=== PATIENT | female | born 2000 | race Caucasian/White ===

== ENCOUNTER → 2020-03-02 15:57 | Outpatient (CLI) | payer BC, SELFPAY | PROVIDERS: Visit Provider Nurse Practitioner Obstetrics & Gynecology | DX: Z34.90 Encounter for supervision of normal pregnancy, unspecified, unspecified trimester (principal) | CPT/HCPCS: 36415; 84702 ==

== ENCOUNTER → 2020-03-16 09:26 | Outpatient (CLI) | payer BC, SELFPAY ==
[2020-03-16 11:43] LABS: Basophils % 0.5 % (0.1-2.0); Eosinophils % 0.3 % (0.1-12.0); Hematocrit 36.9 % (37.0-47.0); Hemoglobin 13.3 g/dL (12.2-16.2); Lymphocytes # 1.9 K/mm3 (0.7-4.5); Lymphocytes % 22.1 % (10-50); Mean Corpuscular HGB Conc 36.2 g/dL (31.8-35.4); Mean Corpuscular Hemoglobin 32.3 pg (27.0-31.2); Mean Corpuscular Volume 89.3 fl (81-99); Mean Platelet Volume 8.5 fl (7.4-10.4); Monocytes # 0.4 K/mm3 (0.1-1.0); Monocytes % 4.2 % (1.7-9.3); Neutrophils # 6.2 K/mm3 (1.8-7.8); Neutrophils % 72.9 % (37.0-80.0); Platelet Count 212 K/mm3 (142-424); Red Blood Count 4.13 M/mm3 (4.20-5.40); Red Cell Distribution Width 12.8 % (11.5-17.5); White Blood Count 8.5 K/mm3 (4.5-13.0)
[2020-03-16 16:01] LABS: Microscopic, Urine URINE MICROSCOPIC (MICROSCOPIC)
[2020-03-16 16:15] LABS: Appearance,Urine CLEAR (Clear); Blood, Urine Negative (Negative); Color,Urine YELLOW (Yellow); Glucose,Urine (UA) Negative (Negative); Ketones,Urine Negative (Negative); Leukocyte Esterase,Urine Negative (Negative); Nitrate,Urine Negative (Negative); Protein,Urine Negative (Negative); Specific Gravity, Urine >= 1.030 (1.005-1.030); Urobilinogen,Urine 0.2 EU/dl (0.2)
[2020-03-16 16:53] LABS: Bilirubin,Urine Negative (Negative)
[2020-03-16 16:54] LABS: Bacteria,Urine Trace /lpf; Calcium Oxalate Crystals,Urine Trace /lpf; WBC,Urine Occasional #/hpf (0-3)
[2020-03-17 10:44] LABS: Rapid Plasma Reagin Ab Titer Non Reactive (NonRea<1:1)
[2020-03-17 14:33] LABS: HIV Screen 4th Generation wRfx Non Reactive (Non Reactive); Hepatitis B Surface Antigen Negative (Negative); Hepatitis C Antibody <0.1 s/co ratio (0.0-0.9); Rubella Antibodies, IgG 9.91 index (Immune >0.99)
[2020-03-19 07:26] LABS: Neisseria gonorrhoeae, NAA Negative (Negative)
== END ==
PROVIDERS: Visit Provider Nurse Practitioner Obstetrics & Gynecology
DX: Z34.90 Encounter for supervision of normal pregnancy, unspecified, unspecified trimester (principal)
CPT/HCPCS: 36415; 81001; 85025; 86592; 86703; 86762; 86850; 87340; 87380; 87491; 87591; G0432

== ENCOUNTER → 2020-03-19 10:19 | Outpatient (CLI) | payer BC, SELFPAY ==
--- NOTE | 2020-03-19 10:20 | US_ITS ---
PROCEDURE: US OB TRANSVAGINAL CLINICAL INDICATION: for dates before 12 weeks, patient had spontaneous December of 2019 COMPARISON: No exams were available for comparison FINDINGS: There is a single viable intrauterine gestation. The heart rate is 155 beats per minute. There is a normal amount amniotic fluid noted. The yolk sac is seen measuring 0.7 cm. The crown-rump length measures 4.45 cm corresponding to 11 weeks and 2 days. No gross abnormality is seen on these images. The cervix measures 4.2 cm and is closed. Both ovaries appear normal. IMPRESSION: Grossly normal appearing early viable intrauterine gestation estimated age at 11 weeks 2 days and estimated due date of 10/06/2020 Dictated by: Dr. Franco Delong MD 03/19/2020 12:[address] Franco Delong MD in [place] 03/19/2020 12:06
== END ==
PROVIDERS: PCP Nurse Practitioner Family; Visit Provider Nurse Practitioner Obstetrics & Gynecology
DX: Z34.90 Encounter for supervision of normal pregnancy, unspecified, unspecified trimester (principal)
CPT/HCPCS: 76817

== ENCOUNTER → 2020-05-26 13:49 | Outpatient (CLI) | payer BC, SELFPAY ==
--- NOTE | 2020-05-26 13:49 | US_ITS ---
PROCEDURE: US OB /MATERNAL DETAIL CLINICAL INDICATION: 20 week gestation of Anatomy exam COMPARISON: US US OB TRANSVAGINAL from 03/19/2020 FINDINGS: There is a single live fetus present which is in cephalic presentation. heart and body motion noted. Cervix is closed and measures 3.5 cm transabdominal. The placenta is posterior without previa or abruption. Complete survey performed and was unremarkable on the submitted images as in PACS. No discrete anomalies identified on survey imaging by technologist. Active fetus. Three-vessel cord with satisfactory umbilical cord insertion. 4- chamber heart noted. Survey of brain & ventricles Unremarkable. Face and neck survey unremarkable. Diaphragm and chest views unremarkable. Abdomen: Both kidneys noted and unremarkable. Stomach noted and satisfactory. Spine: Survey of the spine satisfactory with no anomalies identified nor imaged. Both arms and legs noted. Amniotic Fluid: Adequate. Maternal adnexa: No significant findings. Measurements: Average ultrasound age 21weeks. Gestational Age 21weeks 0days Estimated due date by ultrasound age 1210/06/2020. Estimated weight 390g BPD = 21weeks 1day OFD = 21weeks 2days HC = 20weeks 3days AC = 21weeks 1day FL = 21weeks 1day Growth Percentile= 43Percent% Heart Rate = 155bpm Cerebellum = 21weeks 2days Humerus = 21weeks 1day HC/AC is 1.13 CI is 0.78 FL/BPD is 0.7 FL/AC is 0.22 IMPRESSION: Live IUP at 21 weeks as described above. No obvious anomalies. Please see above for detail Dictated b Hemant Clemente MD 05/27/2020 10:58 Hemant Clemente MD in [place] 05/27/2020 10:58
== END ==
PROVIDERS: PCP Nurse Practitioner Family; Visit Provider Nurse Practitioner Obstetrics & Gynecology
DX: Z3A.20 20 weeks gestation of pregnancy (principal)
CPT/HCPCS: 76811

== ENCOUNTER → 2020-07-12 07:07 | Outpatient (CLI) | payer BC, SELFPAY ==
[2020-07-12 08:29] LABS: Glucose,Fasting 89 mg/dl (74-100)
[2020-07-12 08:48] LABS: Glucose 1 Hour 162 mg/dL (74-100)
== END ==
PROVIDERS: Visit Provider Nurse Practitioner Obstetrics & Gynecology
DX: Z34.90 Encounter for supervision of normal pregnancy, unspecified, unspecified trimester (principal)
CPT/HCPCS: 36415; 82951

== ENCOUNTER → 2020-07-14 07:16 | Outpatient (CLI) | payer BC, SELFPAY ==
[2020-07-14 08:17] LABS: Glucose,Fasting 89 mg/dl (74-100)
[2020-07-14 09:09] LABS: Glucose 1 Hour 160 mg/dL (74-100)
[2020-07-14 10:16] LABS: Glucose 2 Hour 132 mg/dL (74-100)
[2020-07-14 11:09] LABS: Glucose 3 Hour 102 mg/dL (74-100)
== END ==
PROVIDERS: Visit Provider Nurse Practitioner Obstetrics & Gynecology
DX: Z34.90 Encounter for supervision of normal pregnancy, unspecified, unspecified trimester (principal)
CPT/HCPCS: 36415; 82951

== ENCOUNTER → 2020-09-07 18:22 | Outpatient (CLI) | payer BC, SELFPAY | PROVIDERS: Visit Provider Nurse Practitioner Obstetrics & Gynecology | DX: Z34.90 Encounter for supervision of normal pregnancy, unspecified, unspecified trimester (principal); Z3A.35 35 weeks gestation of pregnancy | CPT/HCPCS: 86403 ==

== ENCOUNTER → 2020-09-29 17:06 | Outpatient (CLI) | payer BC, SELFPAY ==
[2020-09-29 17:08] LABS: Microscopic, Urine URINE MICROSCOPIC (MICROSCOPIC)
[2020-09-29 18:32] LABS: Appearance,Urine CLEAR (Clear); Bilirubin,Urine Negative (Negative); Blood, Urine Negative (Negative); Color,Urine YELLOW (Yellow); Glucose,Urine (UA) Negative (Negative); Ketones,Urine Negative (Negative); Leukocyte Esterase,Urine 2+ (Negative); Nitrate,Urine Negative (Negative); PH,Urine 6.5 (5.0-8.5); Protein,Urine Negative (Negative); Specific Gravity, Urine 1.025 (1.005-1.030); Urobilinogen,Urine 0.2 EU/dl (0.2)
[2020-09-29 20:20] LABS: Calcium Oxalate Crystals,Urine Trace /lpf; Squamous Epithelial Cell,Urine Occasional #/hpf (0-5); WBC,Urine Occasional #/hpf (0-3)
== END ==
PROVIDERS: Visit Provider Nurse Practitioner Obstetrics & Gynecology
DX: Z34.90 Encounter for supervision of normal pregnancy, unspecified, unspecified trimester (principal)
CPT/HCPCS: 81001; 87086

== ENCOUNTER 2020-10-04 22:36 | Inpatient (IN) | payer BC, SELFPAY ==
[2020-10-04 22:07] VITALS: BMI 30.4
[2020-10-04 22:10] VITALS: BP 118/92; PULSE 118; RESP 17; TEMP 36.9; O2SAT 97
[2020-10-04 22:17] LABS: Microscopic, Urine URINE MICROSCOPIC (MICROSCOPIC)
[2020-10-04 22:18] VITALS: BP 118/92; PULSE 118; RESP 17; TEMP 36.9; O2SAT 97; BMI 29.5
[2020-10-04 22:19] LABS: Appearance,Urine SL CLOUDY (Clear); Bilirubin,Urine Negative (Negative); Blood, Urine Negative (Negative); Color,Urine YELLOW (Yellow); Glucose,Urine (UA) Negative (Negative); Ketones,Urine Negative (Negative); Leukocyte Esterase,Urine TRACE (Negative); Nitrate,Urine Negative (Negative); Protein,Urine Negative (Negative); Urobilinogen,Urine 0.2 EU/dl (0.2)
[2020-10-04 22:32] LABS: Amphetamine/Metha Screen,Urine Negative ng/ml (<1000); Barbiturates Screen,Urine Negative ng/ml (<200)
[2020-10-04 22:33] LABS: Benzodiazepines Screen,Urine Negative ng/ml (<200); Cannabinoid Screen,Urine Negative ng/ml (<50)
[2020-10-04 22:34] LABS: Cocaine Screen,Urine Negative ng/ml (<300)
[2020-10-04 22:35] LABS: Methadone Screen,Urine Negative ng/ml (<300); Opiate Screen,Urine Negative ng/ml (<300)
[2020-10-04 22:36] LABS: Phencyclidine Screen,Urine Negative ng/ml (<25)
[2020-10-04 22:52] LABS: Amorphous Sediment,Urine 1+ /lpf; Bacteria,Urine 1+ /lpf
[2020-10-04 23:03] LABS: Basophils # 0.1 K/mm3 (0-0.2); Basophils % 0.3 % (0.1-2.0); Eosinophils # 0.1 K/mm3 (0.0-0.4); Eosinophils % 0.3 % (0.1-12.0); Hematocrit 35.7 % (37.0-47.0); Hemoglobin 12.8 g/dL (12.2-16.2); Lymphocytes # 2.8 K/mm3 (0.7-4.5); Lymphocytes % 14.4 % (10-50); Mean Corpuscular HGB Conc 35.9 g/dL (31.8-35.4); Mean Corpuscular Hemoglobin 33.1 pg (27.0-31.2); Mean Corpuscular Volume 92.1 fl (81-99); Mean Platelet Volume 8.9 fl (7.4-10.4); Monocytes % 5.2 % (1.7-9.3); Neutrophils # 15.6 K/mm3 (1.8-7.8); Neutrophils % 79.8 % (37.0-80.0); Platelet Count 289 K/mm3 (142-424); Red Blood Count 3.87 M/mm3 (4.20-5.40); Red Cell Distribution Width 13.6 % (11.5-17.5); White Blood Count 19.5 K/mm3 (4.5-13.0)
[2020-10-04 23:09] LABS: MANUAL DIFFERENTIAL MANUAL DIFFERENTIAL (MANUAL DIFF)
[2020-10-05 00:05] LABS: Lymphocytes % 8 % (10-50); Monocytes % 2 % (2-9); Neutrophils % 90 % (42-76); Platelet Estimate Normal; RBC Morphology Normal; Total Cells Counted 100
[2020-10-05 00:15] LABS: Coronavirus 19 IgG Antibody Negative (Negative); Coronavirus 19 IgM Antibody Negative (Negative)
--- NOTE | 2020-10-05 03:06 | P.PN_ITS ---
[facility] Anesthesia Checklist - Patient Identification Patient Identification: Arm Band, Verbal (Name & ) - Structural Data Admitted From: Home Planned Operative Procedure/s: labor, epidural Consent for Planned Operative Procedure(s) Verified: Yes Verified Documents: History and Physical - NPO Status Verified Time NPO: 00:00 - Chart Verification Results Verified: CBC, BMP - Additional verifications Patient : Yes Anesthesia Reactions: No Hx Blood Transfusions: No Blood Transfusion Reaction: No Cephalosporin Allergy: No Previous Colonoscopy: No - Cardiovascular Assessment Heart Sounds: S1 & S2 Pulse Strength: Baseline Pulse Rhythm: Regular Peripheral Edema: No - Airway Assessment C-Spine Mobility Assessed: Yes TMJ Mobility Assessed: Yes Dentition: Good Dentition - Neurological Assessment Level of Consciousness: Awake, Alert, Appropriate Hx Seizures: No Numbness or tingling in extremities: No - Anesthesia Plan Anesthesia Risk discussed: Yes Anesthesia Plan: Verified Anesthesia Type: Epidural [facility] History I have reviewed the patient's past medical history: Yes Medical History: Denies:: Anxiety, Asthma, Depression, Migraine, MRSA *Have you ever received a pneumonia vaccine?: No *Have you received a flu vaccine this season?: No Anesthesia experience/problems:: none Laterality Cases: Bilateral: Tonsillectomy Other Surgeries: Yes: No Previous Surgery. 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
[2020-10-05 07:07] VITALS: BP 113/64; PULSE 97; RESP 20; TEMP 36.9; O2SAT 100
--- NOTE | 2020-10-05 08:02 | HMH.PHAINT ---
Medication reconciliation completed using pharmacy claims data.
--- NOTE | 2020-10-05 08:43 | HMH.LABNOT ---
Labor Note - Subjective: Date: 10/05/20 Time: 08:43 regular contraction - Objective: NST:: Reactive Contractions:: every 2-3 minutes Cervical Dilation:: 9-10 Effacement:: 100% Membranes: spontaneously ruptured - Fetus: Monitoring?: Yes monitoring type:: Internal Comment:: I inserted an IUPC as well as a clip. - Assessment: Labor progressing?: Yes Cephalopelvic disproportion?: No Patient Problems: All Active Problems (Acute) - Plan: Anesthesia for epidural?: Yes Continue to labor down?: Yes Plan for ?: No Continue to monitor?: Yes Start pushing?: No
--- NOTE | 2020-10-05 08:44 | HMH.OBAPHP ---
OB - H&P: HPI Antepartum - History of Present Illness Chief complaint: Contractions History of present illness: She is a 20-year-old 2 para 0 aborta 1 who was 39 and 5 weeks gestational age. She arrived in the evening of October 04 with regular contractions. As result of that we elected to watch her overnight. She was found to be 3 cm at that time. - History of Present Criteria for establishing EDC:: LMP confirmed by 1st trimester US care: good care Ultrasounds: normal 1st trimester US, normal mid trimester US Obstetrical complications: none Medical complications: none - Labs Blood type: A (+) positive Rubella: immune RPR/VDRL: nonreactive GBS status: negative HBsAG: negative [facility] History I have reviewed the patient's past medical history: Yes Medical History: Denies:: Anxiety, Asthma, Depression, Migraine, MRSA, Seizures *Have you ever received a pneumonia vaccine?: No *Have you received a flu vaccine this season?: No Other Medical History: Denies: Blood Transfusion Reaction Anesthesia experience/problems:: none Laterality Cases: Bilateral: Tonsillectomy Other Surgeries: Yes: No Previous Surgery. 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, Spontaneous Para: 0 Review of Systems - Review of Systems Review of systems:: pertinent systems reviewed and negative unless documented below Meds Home Medications Medication Instructions Recorded Confirmed Type vit no.95-ferrous 1 tab PO DAILY tab 04/13/20 10/04/20 History fumarate 28 mg-folic acid 800 mcg tablet Ferrous Sulfate 325 mg PO DAILY 10/04/20 10/04/20 History Allergies Allergy/AdvReac Type Severity Reaction Status Date / Time No Known Allergies Allergy Verified 09/29/20 10:59 OB - H&P: Exam - Physical Exam Vital signs: Temp Pulse Resp BP Pulse Ox 98.5 F 97 H 20 113/64 100 10/05/20 07:07 10/05/20 07:07 10/05/20 07:07 10/05/20 07:07 10/05/20 07:07 - Constitutional no acute distress - Routine HEENT Exam Head: Present: normocephalic Eye: Present: EOMI, PERRL ENT: Present: mucous membranes moist - Routine Neck Exam Present: supple, full ROM - Routine Respiratory Exam Absent: accessory muscle use (good air entry bilaterally), respiratory distress, wheezes, crackles - Routine Cardiovascular Exam Present: RRR. Absent: murmur - Routine Abdominal Exam Present: soft, normoactive bowel sounds. Absent: tenderness, distended, guarding - Routine Rectal Exam Patient deferred: visual exam, digital exam - Routine Exam Patient deferred: external exam, groin exam, perineal exam - Routine Extremities Exam Present: full ROM. Absent: cyanosis, edema - Routine Skin Exam Present: intact. Absent: cyanosis - Routine Neurological Exam Present: alert, oriented X3 - Routine Psychiatric Exam Present: normal affect OB - Results - Labs Labs: Short CBC 10/04/20 Range/Units 22:50 WBC 19.5 H (4.5-13.0) K/mm3 Hgb 12.8 (12.2-16.2) g/dL Hct 35.7 L (37.0-47.0) % Plt Count 289 (142-424) K/mm3 Urine 10/04/20 Range/Units 22:09 Urine Color Yellow (Yellow) Urine Appearance Sl cloudy (Clear) Urine pH 7.0 (5.0-8.5) Ur Specific Cabins 1.020 (1.005-1.030) Urine Protein Negative (Negative) Urine Glucose (UA) Negative (Negative) OB - A/P Antepartum (1) Normal delivery at term Status: Acute - Additional Plan Planning to breastfeed?: No Plan: expectant management Additional Information:: S
--- NOTE | 2020-10-05 09:33 | HMH.DN ---
- Delivery Note Delivery Date:: 10/05/20 Delivery Time:: 09:22 Anesthesia Type: Epidural Was labor medically induced?: No Induction method: none Gestational age (weeks): 39 Infant delivered prior to 39 weeks?: No Justification for early elective delivery:: Active Labor Gender: Female at 1 minute: 7 at 5 minutes: 9 LAC or MLE?: LAC Delivery Procedure:: She is a 20-year-old 2 para 0 aborta 1 at 39+5 weeks gestational age. She came in in early labor. She was found to be 3 cm dilated. She subsequently spontaneous rupture membranes in the middle of the night and progressed to full dilation. Under labor epidural she delivered spontaneously a liveborn female child at 9:22 AM on the morning of October 05, 2020. On deliver the head it was noted that there was a tight nuchal cord. I was able to deliver the rest of the infant's body followed by reduction of the cord. The baby was stimulated and cried spontaneously. The oropharynx and nasopharynx were bulb suctioned. We elected to pass the baby off to the nurses at the resuscitation table where the baby was stimulated and cried spontaneously. The nurses assigned Apgars of 7 at 1 minute and 9 at 5 minutes. We then obtained cord blood as well as cord pH which is currently pending. She received IV oxytocin and using gentle traction on the cord and countertraction on the fundus I was able to easily deliver the placenta intact at 925. It had a normal three-vessel cord. She had a small left vaginal laceration that was repaired with interrupted 3-0 Vicryl Rapide suture. She has a positive blood, she is rubella immune and was group B streptococcus negative. She plans to bottlefeed. Estimated blood loss was approximately 250 cc. Laceration:: vaginal Placental Delivery Description: Spontaneous
[2020-10-05 09:37] LABS: Cord Blood PH 7.29 (7.35-7.45)
[2020-10-05 11:56] VITALS: BP 114/58; PULSE 107; RESP 20; TEMP 36.9
--- NOTE | 2020-10-05 13:11 | SW/DCPLANNER ---
I received a referral for this patient regarding: THC positive x 2 visits. Patient delivered female today 10/05/2020: Kiara Smith. Infants father (Bradley Smith 00) was present at time of my visit. This is patient and fathers first child. Infants, patient, [place] and patients aunt (Norma Auguste along with her two kids Goldy and Daja Auguste) will all resides at [address] [place] [address] in [place] [id number]. Fathers contact number is [phone]. Patient stated that she is trying to get housing for herself, and [place] in [place]. Patient is currently established with [facility] and is interested in HANDS program. I will contact Eileen with the HANDS program. Patient stated that she has: crib, carseat, clothing, diapers and will be bottle feeding. Patient did have positive THC use at beginning of : 03/16 and 04/13. Patient was negative for all visits after second positive THC: NEGATIVE 05/11, 06/08, 07/06, 07/19, 08/03, 08/17, 09/07, 09/13, 09/20, 09/29 and admission 10/04. Infants cord screen has been collected and waiting for urine to be collected. Nursing staff (Merle) did state that patient is appropriate with infant. Patient will discharge home on 10/07/2020.
[2020-10-05 15:53] VITALS: BP 120/70; PULSE 104; RESP 18; TEMP 37; O2SAT 99
[2020-10-06 06:58] LABS: Hemoglobin 11.4 g/dL (12.2-16.2)
[2020-10-06 07:51] VITALS: BP 118/78; PULSE 86; RESP 18; TEMP 36.6; O2SAT 98
--- NOTE | 2020-10-06 09:25 | HMH.ACPN2 ---
Internal Medicine - PN: Subj *Date: 10/06/20 *Time: 09:25 Interval history: She is doing very well this morning. She is eating and drinking and ambulating. She is bottlefeeding. Her lochia is normal. She denies any pain. Exam Vital signs and Labs for Last 24 Hours: Temp Pulse Resp BP Pulse Ox 97.9 F 86 18 118/78 98 10/06/20 07:51 10/06/20 07:51 10/06/20 07:51 10/06/20 07:51 10/06/20 07:51 Laboratory Results - last 24 hr 10/05/20 09:29: Cord ABG pH 7.29 L 10/06/20 06:28: Hgb 11.4 L, Hct 33.0 L I & O for Last 24 hours: Intake & Output 10/03/20 10/04/20 10/05/20 10/06/20 11:59 11:59 11:59 11:59 Weight 183 lb - Constitutional no acute distress - *Routine HEENT Exam Head: Present: normocephalic Eye: Present: EOMI, PERRL ENT: Present: mucous membranes moist Assessment and Plan (1) Normal delivery at term Status: Acute Category: Medical Code(s): O80 - Encounter for full-term uncomplicated delivery - Assessment and plan all Dx Assessment and Plan for all problems:: She continues to do very well. We will see her back again in the morning and send her home tomorrow.
[2020-10-06 12:03] VITALS: BP 104/72; PULSE 80; RESP 18; TEMP 36.7; O2SAT 99
[2020-10-06 15:00] VITALS: BP 118/65; PULSE 86; RESP 18; TEMP 36.7; O2SAT 98
[2020-10-07 08:00] VITALS: BP 126/66; PULSE 100; RESP 20; TEMP 36.8; O2SAT 97
--- NOTE | 2020-10-07 08:24 | HMH.OBDCSM ---
General - General Admission date:: 10/04/20 Discharge date: 10/07/20 HPI - History of Present Illness History of present illness: She is a 20-year-old 2 para 1 aborta 1 who was 39 weeks gestational age. She came in in early labor and was observed overnight. Hospital Course Hospital Course: She came in in early labor and was observed overnight. She subsequently progressed to 6 cm. Her membranes spontaneously ruptured and under labor epidural she progressed to full dilatation with augmentation with oxytocin. She delivered spontaneously a liveborn female child at 9:22 AM on the morning of October 05, 2020. The baby weighed 6 pounds 11 ounces and was 19 inches long. She had Apgars of 7 at 1 minute and 9 at 5 minutes. She has done well and has remained afebrile throughout her hospitalization. She is eating and drinking and ambulating. She is bottlefeeding. She has a positive blood, she is rubella immune and was group B streptococcus negative. Her chief cardiopulmonary technologist is Dr. Zelaya. She is discharged home to follow-up with me in approximately 3 weeks time. She will continue with her vitamins and iron. She is just taking [id number] analgesics. She was given the usual instructions with respect to limiting her activity, driving and sexual activity. Her condition on discharge is stable and improved. Rhogam Administration: Not Indicated Objective Vital signs: Temp Pulse Resp BP Pulse Ox 98.2 F 100 H 20 126/66 97 10/07/20 08:00 10/07/20 08:00 10/07/20 08:00 10/07/20 08:00 10/07/20 08:00 no acute distress - *Routine HEENT Exam Head: Present: normocephalic Eye: Present: EOMI, PERRL ENT: Present: mucous membranes moist DS: Diagnosis - Discharge Diagnosis (1) Normal delivery at term Status: Acute Discharge Plan - Patient Discharge Instructions ACTIVITY: No heavy lifting DIET: continue same diet Additional Instructions: NOTHING IN THE VAGINA FOR 6 WEEKS NO HEAVY LIFTING OR STRENUOUS ACTIVITY Patient Instructions: Depression, Hemorrhage, DI for Labor and Delivery, Vaginal , DI for Pre-eclampsia, [facility] Post Discharge Instructions, Preventing the Spread of Coronavirus Discharge Instructions - Follow up Plan Follow up with: Jose Gonzalez MD [Primary Care Provider] - Disposition: Home, Self-Skilled Nursing Medications: Home Medications Medication Instructions Recorded Confirmed Type vit no.95-ferrous 1 tab PO DAILY tab 04/13/20 10/04/20 History fumarate 28 mg-folic acid 800 mcg tablet Ferrous Sulfate 325 mg PO DAILY 10/04/20 10/04/20 History Prescriptions/Medication Reconciliation: Continued vit no.95-ferrous fumarate 28 mg-folic acid 800 mcg tablet 1 tab PO DAILY tab Ferrous Sulfate 325 mg PO DAILY - Problem Reconciliation Problems Reviewed?: Yes
== END 2020-10-07 10:30 | disposition home or self-care (01) | DRG 807 ==
LOC: OBOUT 22:37 → OB 22:37
PROVIDERS: Admitting Provider Nurse Practitioner Obstetrics & Gynecology; PCP Nurse Practitioner Obstetrics & Gynecology; Visit Provider Nurse Practitioner Obstetrics & Gynecology
DX: O70.0 First degree perineal laceration during delivery (principal); Z37.0 Single live birth; Z3A.39 39 weeks gestation of pregnancy
CPT/HCPCS: 59409; 36415; 59025; 80305; 81001; 82800; 85007; 85014; 85018; 85025; 86328; 86850; 94761; C1758; J0595; J1050

== ENCOUNTER → 2021-04-13 14:25 | Outpatient (CLI) | payer BC, SELFPAY | PROVIDERS: Visit Provider Nurse Practitioner Obstetrics & Gynecology | DX: N92.6 Irregular menstruation, unspecified (principal) | CPT/HCPCS: 36415; 84702 ==

== ENCOUNTER → 2021-04-26 08:42 | Outpatient (CLI) | payer BC, SELFPAY ==
[2021-04-29 19:19] LABS: Neisseria gonorrhoeae, NAA Negative (Negative)
== END ==
PROVIDERS: Visit Provider Nurse Practitioner Obstetrics & Gynecology
DX: Z34.90 Encounter for supervision of normal pregnancy, unspecified, unspecified trimester (principal); Z3A.14 14 weeks gestation of pregnancy
CPT/HCPCS: 87491; 87591

== ENCOUNTER → 2021-05-11 12:34 | Outpatient (CLI) | payer BC, SELFPAY ==
--- NOTE | 2021-05-11 12:35 | US_ITS ---
PROCEDURE: US OB >= 14 WEEKS FETUS CLINICAL INDICATION: for dates COMPARISON: US US OB /MATERNAL DETAIL from 05/26/2020 FINDINGS: Single viable intrauterine gestation. Cephalic position. Placenta: Posteriorplacenta grade 1. There is average amount fluid. The cervix appears satisfactory. Closed and measuring 3.2 cm in length. Complete survey performed and was unremarkable on the submitted images as in PACS. No discrete anomalies identified on survey imaging by technologist. Active fetus. Three-vessel cord with satisfactory umbilical cord insertion. 4- chamber heart noted. Survey of brain & ventricles Unremarkable. Face and neck survey unremarkable. Diaphragm and chest views unremarkable. Abdomen: Both kidneys noted and unremarkable. Stomach noted and satisfactory. Spine: Survey of the spine satisfactory with no anomalies identified nor imaged. Both arms and legs noted. Amniotic Fluid: Adequate. Maternal adnexa: No significant findings. Measurements: Average ultrasound age 16weeks 1day. Gestational Age 16weeks 1day Estimated due date by ultrasound age 0110/25/2021. Estimated weight 134g BPD = 16weeks 4days OFD = 16weeks HC = 16weeks AC = 16weeks FL = 15weeks 4days Growth Percentile= 23Percent% Heart Rate = 155bpm Cerebellum = Humerus = HC/AC is 1.2 CI is 0.82 FL/BPD is 0.55 FL/AC is 0.19 An intrauterine gestational sac is present with a pole with a crown-rump length of 10.14cm correlating to gestational age of 16weeks 1day. heart tones are present with an FHR of 155bpm. IMPRESSION: Viable and active cephalic fetus with grossly normal appearing anatomy Estimated due date by Ultrasound is 10/25/2021 Dictated by: Dr. Franco Delong MD 05/11/2021 15:11 Dr. Franco Delong MD in [place] 05/11/2021 15:11
== END ==
PROVIDERS: Visit Provider Nurse Practitioner Obstetrics & Gynecology
DX: Z34.91 Encounter for supervision of normal pregnancy, unspecified, first trimester (principal)
CPT/HCPCS: 76805

== ENCOUNTER → 2021-06-07 13:00 | Outpatient (CLI) | payer BC, SELFPAY ==
--- NOTE | 2021-06-07 13:05 | US_ITS ---
PROCEDURE: US OB /MATERNAL DETAIL CLINICAL INDICATION: 20 week us COMPARISON: US US OB >= 14 WEEKS FETUS from 05/11/2021 FINDINGS: There is a single live fetus present in breech presentation. The cervix is closed measuring 3 cm. The placenta is posterior and grade 1. Complete survey performed and was unremarkable on the submitted images as in PACS. No discrete anomalies identified on survey imaging by technologist. Active fetus. Three-vessel cord with satisfactory umbilical cord insertion. 4- chamber heart noted. Nonspecific echogenic cardiac focus noted. Survey of brain & ventricles Unremarkable. Face and neck survey unremarkable. Diaphragm and chest views unremarkable. Abdomen: Both kidneys noted and unremarkable. Stomach noted and satisfactory. Spine: Survey of the spine satisfactory with no anomalies identified nor imaged. Both arms and legs noted. Amniotic Fluid: Adequate. Maternal adnexa: No significant findings. Measurements: Average ultrasound age 19weeks 4days. Gestational Age 19weeks 4days Estimated due date by ultrasound age 0110/28/2021. Estimated weight 298g BPD = 19weeks 6days OFD = 20weeks HC = 19weeks 1day AC = 20weeks FL = 19weeks 1day Growth Percentile= 9% Heart Rate = 156bpm Cerebellum = 20weeks 2days Humerus = 19weeks 2days HC/AC is 1.12 CI is 0.79 FL/BPD is 0.65 FL/AC is 0.2 IMPRESSION: Live IUP at 19 weeks 4 days. Breech presentation. All parameters correlate. There is a nonspecific echogenic cardiac focus. This may be due to an incidental finding. Consider follow-up. Estimated weight is 298 g which is 9th percentile according to patient's last menstrual period Dictated by: Hemant Clemente MD 06/07/2021 17:52 Hemant Clemente MD in [place] 06/07/2021 17:52
[2021-06-07 14:23] LABS: Basophils % 0.2 % (0.1-2.0); Eosinophils % 0.3 % (0.1-12.0); Hematocrit 33.1 % (37.0-47.0); Hemoglobin 11.9 g/dL (12.2-16.2); Lymphocytes # 1.8 K/mm3 (0.7-4.5); Lymphocytes % 18.1 % (10-50); Mean Corpuscular Hemoglobin 30.8 pg (27.0-31.2); Mean Corpuscular Volume 85.5 fl (81-99); Mean Platelet Volume 8.3 fl (7.4-10.4); Monocytes # 0.4 K/mm3 (0.1-1.0); Monocytes % 4.3 % (1.7-9.3); Neutrophils # 7.8 K/mm3 (1.8-7.8); Neutrophils % 77.1 % (37.0-80.0); Platelet Count 239 K/mm3 (142-424); Red Blood Count 3.87 M/mm3 (4.20-5.40); Red Cell Distribution Width 13.9 % (11.5-17.5); White Blood Count 10.2 K/mm3 (4.5-13.0)
[2021-06-09 08:52] LABS: HIV Screen 4th Generation wRfx Non Reactive (Non Reactive); HSV 1 IgG, Type Spec <0.91 index (0.00-0.90); HSV 2 IgG, Type Spec <0.91 index (0.00-0.90); Hepatitis B Surface Antigen Negative (Negative); Hepatitis C Antibody <0.1 s/co ratio (0.0-0.9); Rubella Antibodies, IgG 8.42 index (Immune >0.99)
[2021-06-09 10:27] LABS: Rapid Plasma Reagin Ab Titer Non Reactive (NonRea<1:1)
== END ==
PROVIDERS: PCP Nurse Practitioner Family; Visit Provider Nurse Practitioner Obstetrics & Gynecology
DX: Z36.0 Encounter for antenatal screening for chromosomal anomalies (principal); Z3A.20 20 weeks gestation of pregnancy
CPT/HCPCS: 36415; 76811; 85025; 86592; 86695; 86703; 86762; 86790; 86850; 87340; 87380; G0432

== ENCOUNTER → 2021-07-25 09:03 | Outpatient (CLI) | payer BC, SELFPAY ==
[2021-07-25 09:45] LABS: Glucose,Fasting 90 mg/dl (74-100)
[2021-07-25 11:09] LABS: Glucose 1 Hour 106 mg/dL (74-100)
== END ==
PROVIDERS: Visit Provider Nurse Practitioner Obstetrics & Gynecology
DX: Z34.90 Encounter for supervision of normal pregnancy, unspecified, unspecified trimester (principal)
CPT/HCPCS: 36415; 82951

== ENCOUNTER → 2021-09-27 16:55 | Outpatient (CLI) | payer BC, SELFPAY | PROVIDERS: Visit Provider Nurse Practitioner Obstetrics & Gynecology | DX: Z34.90 Encounter for supervision of normal pregnancy, unspecified, unspecified trimester (principal) | CPT/HCPCS: 86403 ==

== ENCOUNTER 2021-10-25 04:44 | Inpatient (IN) | payer BC, SELFPAY ==
[2021-10-25 04:52] VITALS: BMI 31.1
[2021-10-25 05:20] LABS: Coronavirus 19, PCR Not Detected (NotDetected); Influenza A, PCR Not Detected (NotDetected); Influenza B, PCR Not Detected (NotDetected)
[2021-10-25 05:37] LABS: Amphetamine/Metha Screen,Urine Negative ng/ml (<1000)
[2021-10-25 05:38] LABS: Barbiturates Screen,Urine Negative ng/ml (<200)
[2021-10-25 05:39] LABS: Benzodiazepines Screen,Urine Negative ng/ml (<200); Cannabinoid Screen,Urine Negative ng/ml (<50)
[2021-10-25 05:40] LABS: Cocaine Screen,Urine Negative ng/ml (<300)
[2021-10-25 05:41] LABS: Methadone Screen,Urine Negative ng/ml (<300); Opiate Screen,Urine Negative ng/ml (<300)
[2021-10-25 05:42] LABS: Phencyclidine Screen,Urine Negative ng/ml (<25)
[2021-10-25 05:59] VITALS: BP 109/58; PULSE 85; RESP 18; TEMP 36.8; O2SAT 100; BMI 31.1
[2021-10-25 07:15] VITALS: BP 112/62; PULSE 86; RESP 18; TEMP 36.8; O2SAT 98
[2021-10-25 07:34] LABS: Basophils % 0.4 % (0.1-2.0); Eosinophils % 0.4 % (0.1-12.0); Lymphocytes # 2.4 K/mm3 (0.7-4.5); Lymphocytes % 22.7 % (10-50); Mean Corpuscular HGB Conc 33.2 g/dL (31.8-35.4); Mean Corpuscular Hemoglobin 30.6 pg (27.0-31.2); Mean Corpuscular Volume 92.1 fl (81-99); Mean Platelet Volume 9.3 fl (7.4-10.4); Monocytes # 0.6 K/mm3 (0.1-1.0); Monocytes % 5.6 % (1.7-9.3); Neutrophils # 7.5 K/mm3 (1.8-7.8); Platelet Count 296 K/mm3 (142-424); Red Blood Count 3.91 M/mm3 (4.20-5.40); Red Cell Distribution Width 13.6 % (11.5-17.5); White Blood Count 10.6 K/mm3 (4.8-10.8)
--- NOTE | 2021-10-25 08:41 | HMH.ANESCL ---
[facility] Anesthesia Checklist - Patient Identification Patient Identification: Arm Band - Structural Data Admitted From: Home Planned Operative Procedure/s: labor epidural Consent for Planned Operative Procedure(s) Verified: Yes Verified Documents: Surgical Consent, History and Physical - NPO Status Verified Time NPO: 00:00 - Additional verifications Anesthesia Reactions: No Hx Blood Transfusions: No Blood Transfusion Reaction: No - Airway Assessment C-Spine Mobility Assessed: Yes TMJ Mobility Assessed: Yes Dentition: Good Dentition - Neurological Assessment Level of Consciousness: Awake, Alert - Anesthesia Plan Anesthesia Risk discussed: Yes Anesthesia Plan: Verified ASA Class: II Anesthesia Type: Epidural [facility] History I have reviewed the patient's past medical history: Yes Medical History: Denies:: Anxiety, Asthma, Depression, Migraine, MRSA, Seizures *Have you ever received a pneumonia vaccine?: No *Have you received a flu vaccine this season?: No Other Medical History: Denies: Blood Transfusion Reaction Anesthesia experience/problems:: nac Laterality Cases: Bilateral: Tonsillectomy Other Surgeries: Yes: No Previous Surgery. 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
--- NOTE | 2021-10-25 09:42 | HMH.LABNOT ---
Labor Note - Subjective: Date: 10/25/21 Time: 09:42 regular contraction - Objective: NST:: Reactive Contractions:: every 2-3 minutes Cervical Dilation:: 4 Effacement:: 50% Membranes: artificially ruptured - Fetus: Monitoring?: Yes monitoring type:: External - Assessment: Labor progressing?: Yes Patient Problems: All Active Problems (Acute) - Plan: Anesthesia for epidural?: Yes Continue to labor down?: Yes Plan for ?: No Continue to monitor?: Yes Start pushing?: No Additional information:: I ruptured her membranes and there was clear fluid.
--- NOTE | 2021-10-25 09:44 | HMH.OBAPHP ---
OB - H&P: HPI Antepartum - History of Present Illness Chief complaint: Term History of present illness: She is 21-year-old 2 para 1 who was 40 weeks gestational age. She is brought in for induction of labor at term. - History of Present Criteria for establishing EDC:: LMP confirmed by 1st trimester US care: good care Ultrasounds: normal 1st trimester US, normal mid trimester US Obstetrical complications: none Medical complications: none - Labs Blood type: A (+) positive Rubella: immune RPR/VDRL: nonreactive GBS status: negative HBsAG: negative [facility] History I have reviewed the patient's past medical history: Yes Medical History: Denies:: Anxiety, Asthma, Depression, Migraine, MRSA, Seizures *Have you ever received a pneumonia vaccine?: No *Have you received a flu vaccine this season?: No Other Medical History: Denies: Blood Transfusion Reaction Anesthesia experience/problems:: nac Laterality Cases: Bilateral: Tonsillectomy Other Surgeries: Yes: No Previous Surgery. No: Amputation: No Fractures: No - *Social History Smoking Status: Never smoker Tobacco Type: cigarettes Alcohol Intake: never Alcohol Intake Frequency:: other Substance Use Type: marijuana *Occupational Status:: unemployed *Travel in the last 8 weeks: None - Psychiatric History Pschychiatric History:: Denies:: Anxiety, Depression Family Hx:: No significant family history POULTRY PICKER history: Additional POULTRY PICKER History, Spontaneous Para: 1 Review of Systems - Review of Systems Review of systems:: pertinent systems reviewed and negative unless documented below Meds Home Medications Medication Instructions Recorded Confirmed Type Multivit-Minerals/Folic Acid 2 tab PO DAILY 10/25/21 10/25/21 History [Daily Gummies] RX: Ferrous Sulfate 325 mg PO DAILY 10/25/21 10/25/21 History Allergies Allergy/AdvReac Type Severity Reaction Status Date / Time No Known Allergies Allergy Verified 10/21/21 11:42 OB - H&P: Exam - Physical Exam Vital signs: Temp Pulse Resp BP Pulse Ox 98.2 F 86 18 112/62 98 10/25/21 07:15 10/25/21 07:15 10/25/21 07:15 10/25/21 07:15 10/25/21 07:15 - Constitutional no acute distress - Routine HEENT Exam Head: Present: normocephalic Eye: Present: EOMI, PERRL ENT: Present: mucous membranes moist - Routine Neck Exam Present: supple, full ROM - Routine Respiratory Exam Absent: accessory muscle use (good air entry bilaterally), respiratory distress, wheezes, crackles - Routine Cardiovascular Exam Present: RRR. Absent: murmur - Routine Abdominal Exam Present: soft, normoactive bowel sounds. Absent: tenderness, distended, guarding - Routine Rectal Exam Patient deferred: visual exam, digital exam - Routine Exam Patient deferred: external exam, groin exam, perineal exam - Routine Extremities Exam Present: full ROM. Absent: cyanosis, edema - Routine Skin Exam Present: intact. Absent: cyanosis - Routine Neurological Exam Present: alert, oriented X3 - Routine Psychiatric Exam Present: normal affect OB - Results - Labs Labs: Short CBC 10/25/21 Range/Units Unknown WBC 10.6 (4.8-10.8) K/mm3 Hgb 12.0 L (12.2-16.2) g/dL Hct 36.0 L (37.0-47.0) % Plt Count 296 (142-424) K/mm3 OB - A/P Antepartum (1) Normal delivery at term Status: Acute - Additional Plan Planning to breastfeed?: Yes Plan: induction Additional Information:: I have ruptured her membranes and there was clear fluid. We will expect vaginal delivery. She had a previous 7 pound baby.
--- NOTE | 2021-10-25 11:59 | HMH.DN ---
- Delivery Note Delivery Date:: 10/25/21 Delivery Time:: 11:50 Anesthesia Type: Epidural Was labor medically induced?: Yes Induction method: per pitocin protocol Gestational age (weeks): 40 delivered prior to 39 weeks?: No Gender: Female at 1 minute: 9 at 5 minutes: 9 Delivery Procedure:: She is a 21-year-old 2 para 1 at 40 weeks gestational age. Since she was term we elected to induce her labor at term. She was started on IV oxytocin had her membranes ruptured. Under labor epidural she progressed to full dilation and delivered spontaneously a liveborn female child at 11:50 AM in the morning of October 25, 2021. On deliver the head there was a loose nuchal cord which was reduced. This was followed by the rest 's body atraumatically. The baby was vigorous. We allowed the cord to continue to pulsate for approximately 1 minute. The oropharynx and nasopharynx were bulb suctioned. The cord was then doubly clamped and cut and the was placed on the mother's abdomen for further care. The nurses assigned Apgars of 9 at 1 minute and 9 at 5 minutes. We then obtained cord blood. She received IV oxytocin using gentle traction on the cord and countertraction on the fundus I was able to easily deliver the placenta intact at 11:54 AM. He had a normal three-vessel cord. There were no perineal or vaginal lacerations. She has a positive blood, she is rubella immune and was group B streptococcus negative. Estimated blood loss was approximately 100 cc.
[2021-10-25 16:00] VITALS: BP 126/63; PULSE 105; RESP 18; TEMP 36.5; O2SAT 96
[2021-10-26 08:34] LABS: Hemoglobin 11.3 g/dL (12.2-16.2)
--- NOTE | 2021-10-26 09:15 | HMH.ACPN2 ---
Internal Medicine - PN: Subj *Date: 10/26/21 *Time: 09:15 Interval history: She is doing well this morning. She is eating and drinking and ambulating. She is bottlefeeding. Her lochia is normal. Her hemoglobin is stable at 11.3. Exam Vital signs and Labs for Last 24 Hours: Temp Pulse Resp BP Pulse Ox 97.7 F 105 H 18 126/63 96 10/25/21 16:00 10/25/21 16:00 10/25/21 16:00 10/25/21 16:00 10/25/21 16:00 Laboratory Results - last 24 hr 10/26/21 07:38: Hgb 11.3 L, Hct 34.0 L I & O for Last 24 hours: Intake & Output 10/23/21 10/24/21 10/25/21 10/26/21 11:59 11:59 11:59 11:59 Weight 187 lb - Constitutional no acute distress - *Routine HEENT Exam Head: Present: normocephalic Eye: Present: EOMI, PERRL ENT: Present: mucous membranes moist Assessment and Plan (1) Normal delivery at term Status: Acute Category: Medical Code(s): O80 - Encounter for full-term uncomplicated delivery - Assessment and plan all Dx Assessment and Plan for all problems:: She continues to do well. We will see her back in the morning and plan to send her home tomorrow.
--- NOTE | 2021-10-26 15:34 | HMH.OBDCSM ---
General - General Admission date:: 10/25/21 Discharge date: 10/26/21 HPI - History of Present Illness History of present illness: She is a 21-year-old 3 now para 2 aborta 1 who was 40 weeks gestational age. We brought her in at term for delivery. Hospital Course Hospital Course: She was started on IV oxytocin had her membranes ruptured. Under labor epidural she progressed to full dilation and delivered spontaneously a liveborn female child at 11:50 AM on the morning of October 25, 2021. The baby weighed 6 pounds 5 ounces and was 19-1/2 inches long. She had Apgars of 9 at 1 minute and 9 at 5 minutes. There were no perineal or vaginal lacerations. She has done well post and has remained afebrile throughout her hospitalization. She is eating and drinking and ambulating. She is bottlefeeding. She has a positive blood, she is rubella immune and was group B streptococcus negative. Her special delivery mail carrier is Dr. Crespo. She is discharged home to follow-up with me in approximately 2 weeks time. She will continue with her vitamins and iron. She was given the usual instructions with respect to limiting her activity, driving and sexual activity. Her condition on discharge is stable and improved. Rhogam Administration: Not Indicated Objective Vital signs: Temp Pulse Resp BP Pulse Ox 97.7 F 105 H 18 126/63 96 10/25/21 16:00 10/25/21 16:00 10/25/21 16:00 10/25/21 16:00 10/25/21 16:00 no acute distress - *Routine HEENT Exam Head: Present: normocephalic Eye: Present: EOMI, PERRL ENT: Present: mucous membranes moist Results Labs on day of discharge: Labs from last 24 hours 10/26/21 07:38 Hgb 11.3 L Hct 34.0 L DS: Diagnosis - Discharge Diagnosis (1) Normal delivery at term Status: Acute Discharge Plan - Patient Discharge Instructions ACTIVITY: No heavy lifting DIET: continue same diet Additional Instructions: *Nothing in the Vagina for 6 weeks* *No heavy lifting* *No strenuous activity* Patient Instructions: Depression, Hemorrhage, DI for Labor and Delivery, Vaginal , DI for Pre-eclampsia, [facility] Post Discharge Instructions, Preventing the Spread of Coronavirus Discharge Instructions - Follow up Plan Follow up with: Jose Gonzalez MD [Staff Physician] - 11/08/21 10:30 am Disposition: Home, Self-Care Condition at discharge:: Stable Home Medications: Home Medications Medication Instructions Recorded Confirmed Type Ferrous Sulfate 325 mg PO DAILY 10/25/21 10/25/21 History Multivit-Minerals/Folic Acid 2 tab PO DAILY 10/25/21 10/25/21 History [Daily Gummies] Prescriptions/Medication Reconciliation: Continued Multivit-Minerals/Folic Acid [Daily Gummies] 2 tab PO DAILY Ferrous Sulfate 325 mg PO DAILY - Problem Reconciliation Problems Reviewed?: Yes
[2021-10-27 08:16] LABS: Microscopic, Urine URINE MICROSCOPIC (MICROSCOPIC)
[2021-10-27 09:25] LABS: Appearance,Urine CLEAR (Clear); Bilirubin,Urine Negative (Negative); Blood, Urine TRACE-I (Negative); Color,Urine YELLOW (Yellow); Glucose,Urine (UA) Negative (Negative); Ketones,Urine Negative (Negative); Leukocyte Esterase,Urine 2+ (Negative); Nitrate,Urine Negative (Negative); Protein,Urine Negative (Negative); Specific Gravity, Urine >= 1.030 (1.005-1.030); Urobilinogen,Urine 0.2 EU/dl (0.2)
== END 2021-10-26 17:30 | disposition home or self-care (01) | DRG 807 ==
PROVIDERS: Admitting Provider Nurse Practitioner Obstetrics & Gynecology; Visit Provider Nurse Practitioner Obstetrics & Gynecology
DX: O69.81X0 Labor and delivery complicated by cord around neck, without compression, not applicable or unspecified (principal); Z37.0 Single live birth; Z3A.40 40 weeks gestation of pregnancy
CPT/HCPCS: 59409; 36415; 59025; 80305; 81001; 85014; 85018; 85025; 86850; 87086; 94761; C9803; G0283; U0003; U0005

== ENCOUNTER 2024-07-13 13:51 | Day surgery (SDC) | payer BC, SELFPAY ==
[2024-07-13] VITALS (11 sets, daily range): BP systolic 113–134; BP diastolic 65–81; PULSE 59–121; RESP 15–20; TEMP 36.3–36.8; O2SAT 98–100; BMI 18.6
--- NOTE | 2024-07-13 15:40 | CT_ITS ---
PROCEDURE INFORMATION: Exam: CT Abdomen And Pelvis With Contrast Exam date and time: 07/13/2024 5:34 PM Age: 23 years old Clinical indication: Pain and condition or disease; Appendicitis; Abdominal pain; Localized; Right lower quadrant (rlq); Additional info: Rlq pain, reported dx of appendicitis thurs @ [facility] TECHNIQUE: Imaging protocol: Computed tomography of the abdomen and pelvis with contrast. Radiation optimization: All CT scans at this facility use at least one of these dose optimization techniques: automated exposure control; mA and/or kV adjustment per patient size (includes targeted exams where dose is matched to clinical indication); or iterative reconstruction. Contrast material: ISOVUE; Contrast volume: 75 ml; Contrast route: IV; Other contrast: Oral, gastrografin, 30; COMPARISON: US OB /MATERNAL DETAIL 06/07/2021 1:17 PM FINDINGS: Liver: Normal. No mass. Gallbladder and biliary ducts: Normal. No calcified stones. No ductal dilation. Pancreas: Normal. No ductal dilation. Spleen: Normal. No splenomegaly. Adrenal glands: Normal. No mass. Kidneys and ureters: Normal. No hydronephrosis. Stomach and bowel: Unremarkable. No obstruction. No mucosal thickening. Appendix: Appendix is 8 mm with wall thickening and these findings could reflect acute appendicitis. Intraperitoneal space: Mild free fluid in the pelvis Vasculature: Unremarkable. No abdominal aortic aneurysm. Lymph nodes: Unremarkable. No enlarged lymph nodes. Urinary bladder: Unremarkable as visualized. Reproductive: 2.7 cm right ovarian cyst Bones/joints: Unremarkable. No acute fracture. Soft tissues: Unremarkable. IMPRESSION: 1. 8 mm appendix with wall thickening compatible with acute appendicitis. No rupture. No abscess 2. 2.7 cm right ovarian cyst 3. Mild free fluid
--- NOTE | 2024-07-13 15:41 | ED_ITS ---
Discharge Plan Disposition Patient Disposition: Admitted Prescriptions Prescriptions: No Action Nexplanon 68 mg implant subdermal Tyblume 0.1 mg- 20 mcg tablet,chewable 1 tab PO DAILY Qty: 84 3RF Referrals Follow up/Referrals: Provider,Referral, [Referring] - See instructions Clinical Impressions Clinical Impression: Acute appendicitis, Cyst of right ovary Instructions Patient Instructions: DI for Acute Abdominal Pain Print Language Print Language: Lao Discharge ED Provider: Marlin Chen General Adult HPI General Chief complaint: Abdominal Pain Stated complaint: appendix issues Time Seen by Provider: 07/13/24 15:36 History of Present Illness HPI narrative: This patient is a 23-year-old female who denies significant past medical history presenting to the emergency department for evaluation with concern for possible appendicitis. Patient reports that on , 07/10/2024 she was seen at [facility] for right lower quadrant abdominal pain, nausea, and vomiting. She states she was diagnosed with appendicitis, transferred to [facility] for emergency surgery, but she sat there for 24 hours without seeing a surgeon so she checked out. She states that they sent her home on amoxicillin and told her that she should follow-up right away when she is ready to return to the ED, as she had some personal things to attend to at home. She states that she is coming in today for continued evaluation because they told her that her appendix would rupture if she does not get seen. She states she is currently feeling fine with no abdominal pain, nausea, or vomiting, but she is currently on the antibiotic. She also has had no recent fevers, changes in bowel movements, or urinary symptoms. She denies any prior abdominal surgeries. Related Data Home Medications ?Medication ?Instructions ?Recorded ?Confirmed etonogestrel 68 mg subdermal subdermal 09/05/23 09/05/23 implant (Nexplanon) Previous Rx's ?Medication ?Instructions ?Recorded levonorgestrel 0.1 mg-ethinyl 1 tab PO DAILY #84 tabs 09/05/23 estradiol 20 mcg chewable tablet (Tyblume) Allergies Allergy/AdvReac Type Severity Reaction Status Date / Time No Known Allergies Allergy Verified 09/05/23 10:04 [facility] Disclaimer: The information contained in this section may have been updated after the patient was seen, as this information can be updated by other users. Medical History No significant past medical history Surgical History History of tonsillectomy Family History Grandmother Cancer Social History Smoking Status: Current every day smoker tobacco type: e-cigarettes alcohol intake: never substance use type: marijuana current occupational status: unemployed Travel in the last 8 weeks: None ROS Obtained: Yes All systems reviewed & no additional complaints except as documented Physical Exam General General appearance: alert and in no apparent distress Head Head exam: atraumatic and normocephalic Eye Eye exam: Present normal appearance, PERRL and EOMI ENT ENT exam: Present normal exam, normal oropharynx, mucous membranes moist and normal external ear exam Neck Neck exam: Present normal inspection, full ROM and trachea midline; Absent tenderness Chest Chest inspection: Present normal inspection and symmetric chest wall rise; Absent tenderness Respiratory Respiratory exam: Present normal lung sounds bilaterally; Absent respiratory distress, wheezes, stridor or accessory muscle use Cardiovascular Cardiovascular exam: Present regular rate and normal rhythm Abdominal Exam Abdominal exam: Present soft and tenderness (Minimal right lower quadrant abdominal tenderness to very deep palpation with no rebound or guarding); Absent distention, guarding, rebound or rigidity Extremities Exam Extremities exam: Present normal inspection, full ROM and normal capillary refill; Absent tenderness or edema Back Exam Back exam: Present normal inspection and full ROM; Absent tenderness Neurological Exam Neurological exam: Present alert, oriented X3, CN II-XII intact and normal gait; Absent motor sensory deficit Psychiatric Psychiatric exam: Present normal affect and normal mood Skin Skin exam: Present warm and dry Medical Decision Making Medical Records Medical records reviewed: Yes I reviewed the patient's medical records. Screening: Per USPSTF and CDC recommendations, given the prevalence of disease in our region, it is our hospital?s policy to screen for HIV and viral Hepatitis for all patients aged 18 and over and those with ongoing risk factors. Tevin Inquiry Pt receiving controlled substance: No Vital Signs: 07/13/24 13:53 07/13/24 16:30 Temperature 98.2 F Temperature Source Oral Pulse Rate 66 Pulse Rate [Right Radial] 59 L Respiratory Rate 20 Blood Pressure 113/67 Blood Pressure [Right Arm] 120/74 Blood Pressure Mean 85 Blood Pressure Mean [Right Arm] 89 02 Sat by Pulse Oximetry 100 100 Oxygen Delivery Method Room Air Room Air Lab Data Lab results reviewed: Yes I reviewed the patient's lab results. Lab Results 07/13/24 15:50: WBC 9.4, RBC 4.61, Hgb 14.1, Hct 43.4, MCV 94.0, MCH 30.6, MCHC 32.5, RDW 13.1, Plt Count 248, MPV 8.5, Neut % (Auto) 64.8, Lymph % (Auto) 30.2, [place] % (Auto) 3.1, Eos % (Auto) 1.4, Baso % (Auto) 0.5, Neut # (Auto) 6.1, Lymph # (Auto) 2.8, [place] # (Auto) 0.3, Eos # (Auto) 0.1, Baso # (Auto) 0.1, Sodium 138, Potassium 3.4 L, Chloride 109 H, Carbon Dioxide 22, Anion Gap 10.4, BUN 5 L , Creatinine 0.60, Estimated Creat Clear 120, Estimated GFR 124, Est GFR ( Amer) 150, Glucose 91, Calcium 9.7, Total Bilirubin 1.0, AST 29, ALT 18, Alkaline Phosphatase 54, C-Reactive Protein < 0.3, Total Protein 7.4, Albumin 4.6, Globulin 2.8, Albumin/Globulin Ratio 1.6, Serum HCG, Qual Negative 07/13/24 16:48: Urine Color Yellow, Urine Appearance Clear, Urine pH 6.0, Ur Specific [place] <= 1.005, Urine Protein Negative, Urine Glucose (UA) Negative, Urine Ketones Negative, Urine Blood Negative, Urine Nitrate Negative, Urine Bilirubin Negative, Urine Urobilinogen 0.2, Ur Leukocyte Esterase Negative, Ur Squamous Epith Cells 5-10 07/13/24 15:50 07/13/24 15:50 Orders (Tests/Meds): ED MEDICATIONS Discontinued Medications Generic Name Dose Route Start Last Admin Trade Name Freq PRN Reason Stop Dose Admin Diatrizoate Meglum/Diatrizoate Sod 30 ml 07/13/24 15:40 07/13/24 15:56 Diatrizoate Sandy 66% & Diatrizoate Na 10% 30ml Udc PO 07/13/24 15:41 30 ml ONCE ONE Administration Lactated Ringer's 1,000 mls @ 999 mls/hr 07/13/24 15:40 07/13/24 15:56 Lactated Ringer's 1000 Ml Bag IV 07/13/24 16:40 999 mls/hr .Q1H1M ONE Administration Iopamidol 75 ml 07/13/24 17:32 07/13/24 17:33 Iopamidol-370 (76%);100ml Bottle IV 07/13/24 17:33 75 ml ONCE ONE Administration Sodium Chloride 10 ml 07/13/24 17:32 07/13/24 17:33 Sodium Chloride 0.9% 10ml Syr (Rad Only) IV 07/13/24 17:33 10 ml ONCE ONE Administration ORDERS Category Date Time Status CT abdomen pelvis w con Stat Cat Scan 07/13/24 15:40 Completed CRP [C-Reactive Protein] Stat Lab 07/13/24 15:50 Completed Complete Blood Count Auto Diff Stat Lab 07/13/24 15:50 Completed Comprehensive Metabolic Panel Stat Lab 07/13/24 15:50 Completed Serum [HCG Qualitative, Serum] Stat Lab 07/13/24 15:50 Completed UA [Urinalysis and Microscopic] Stat Lab 07/13/24 16:48 Completed Medical Decision Narrative: In summary, this patient is a 23-year-old female presenting to the Emergency Department for evaluation of follow-up of appendicitis after checking out of the hospital AGAINST MEDICAL ADVICE 3 days ago. She is not currently having symptoms but is currently on antibiotics.. Differential diagnoses considered include but are not limited to appendicitis, mesenteric adenitis, ovarian cyst, colitis. Ruling out the most morbid conditions drove assessment. On exam, the patient is lying in bed in no acute distress. She has minimal right lower quadrant abdominal tenderness to deep palpation but no rebound or guarding. Otherwise, exam is reassuring. Vitals are normal on cardiac telemetry. Workup included CBC, CMP, CRP, urinalysis, test, and CT abdomen pelvis with IV and p.o. contrast. She was given a bolus of IV fluids. We requested records from outside hospital and I reviewed records [facility]10-07/11/2024. CT scan there showed acute appendicitis, and patient was agreeable to operative management, but ultimately elected to leave AMA prior to operative intervention. She left on Augmentin. CT read 07/10 states mild fluid- filled prominence of the appendix with mucosal hyperemia and regional inflammatory changes concerning for early appendicitis. Labs were obtained which demonstrated a normal white count of 9.4. Her CRP is also negative. Potassium is mildly low at 3.4. Overall, labs are reassuring. I independently interpreted CT scan prior to the radiologist read and noted right ovarian cyst. Please see their read for final interpretation. The radiologist called me and I had an interactive discussion with her. She advised that the patient has a dilated appendix with wall thickening and adjacent free fluid concerning for acute appendicitis. She also did make note of her ovarian cyst. Given radiology read of acute appendicitis, I called and had an interactive discussion with Dr. Gomez with general surgery. He advised he has called the OR team in and will present to evaluate the patient. Patient was taken to the OR in stable condition. Prior to going, I gave her offirmev and toradol for headache prior to departure. Critical Care Critical Care Time Critical Care Time: No
[2024-07-13] MEDS: LACTATED RINGERS 1000ML 1,000 ML 999 ML IV (15:56)
[2024-07-13] MEDS: DIATRIZOATE MEG 66% & DIATRIZOATE NA 10% 30ML UDC 30 ML PO (15:56)
[2024-07-13 16:04] LABS: Basophils # 0.1 K/mm3 (0-0.2); Basophils % 0.5 % (0.1-2.0); Eosinophils # 0.1 K/mm3 (0.0-0.4); Eosinophils % 1.4 % (0.1-12.0); Hematocrit 43.4 % (37.0-47.0); Hemoglobin 14.1 g/dL (12.2-16.2); Lymphocytes # 2.8 K/mm3 (0.7-4.5); Lymphocytes % 30.2 % (10-50); Mean Corpuscular HGB Conc 32.5 g/dL (31.8-35.4); Mean Corpuscular Hemoglobin 30.6 pg (27.0-31.2); Mean Platelet Volume 8.5 fl (7.4-10.4); Monocytes # 0.3 K/mm3 (0.1-1.0); Monocytes % 3.1 % (1.7-9.3); Neutrophils # 6.1 K/mm3 (1.8-7.8); Neutrophils % 64.8 % (37.0-80.0); Platelet Count 248 K/mm3 (142-424); Red Blood Count 4.61 M/mm3 (4.20-5.40); Red Cell Distribution Width 13.1 % (11.5-17.5); White Blood Count 9.4 K/mm3 (4.8-10.8)
--- NOTE | 2024-07-13 16:16 | HMH.ITSTN ---
pt finished drinking PO contrast @1605. Will be ready for scan @5534
[2024-07-13 16:20] LABS: HCG Qualitative, Serum Negative (Negative)
[2024-07-13 16:21] LABS: Albumin Level 4.6 g/dl (3.5-5.0); Chloride 109 mmol/L (98-107); Potassium 3.4 mmoL/L (3.5-5.1); Sodium 138 mmol/L (136-145)
[2024-07-13 16:23] LABS: Blood Urea Nitrogen 5 mg/dl (7-17); Creatinine Clearance Estimated 120 mL/min (50-200); Estimated Glomerular Filt Rate 124 ml/min (>60); GFR (African American) 150 ML/MIN (>60)
[2024-07-13 16:24] LABS: Alanine Aminotransferase 18 U/L (12-78); Albumin/Globulin Ratio 1.6 (1.1-1.8); Alkaline Phosphatase 54 U/L (38-126); Anion Gap 10.4 mEq/L (5-15); Aspartate Amino Transferase 29 U/L (14-36); Carbon Dioxide 22 mmol/L (22.0-30.0); Globulin 2.8 g/dL (1.3-3.2); Total Protein,Serum 7.4 g/dl (6.3-8.2)
[2024-07-13 16:25] LABS: Calcium 9.7 mg/dl (8.4-10.2); Glucose 91 mg/dl (74-100)
[2024-07-13 16:33] LABS: C-Reactive Protein < 0.3 mg/L (0-4)
[2024-07-13 17:03] LABS: Microscopic, Urine URINE MICROSCOPIC (MICROSCOPIC)
[2024-07-13 17:14] LABS: Appearance,Urine CLEAR (Clear); Bilirubin,Urine Negative (Negative); Blood, Urine Negative (Negative); Color,Urine YELLOW (Yellow); Glucose,Urine (UA) Negative (Negative); Ketones,Urine Negative (Negative); Leukocyte Esterase,Urine Negative (Negative); Nitrate,Urine Negative (Negative); Protein,Urine Negative (Negative); Specific Gravity, Urine <= 1.005 (1.005-1.030); Urobilinogen,Urine 0.2 EU/dl (0.2)
[2024-07-13] MEDS: SODIUM CHLORIDE 0.9% 10ML SYR (RAD ONLY) 10 ML IV (17:33)
[2024-07-13] MEDS: IOPAMIDOL-370 (76%);100ML BOTTLE 75 ML IV (17:33)
--- NOTE | 2024-07-13 18:51 | PC.NURSE ---
Dr Chen s/w Dr. Gomez
--- NOTE | 2024-07-13 19:13 | PC.NURSE ---
Dr Gomez at bedside
--- NOTE | 2024-07-13 19:24 | PC.NURSE ---
Vianney Carey TRAVEL OT at bedside
--- NOTE | 2024-07-13 19:32 | EXP.ANES.CKL ---
[facility] Disclaimer: The information contained in this section may have been updated after the patient was seen, as this information can be updated by other users. Medical History No significant past medical history Surgical History History of tonsillectomy Family History Grandmother Cancer Social History Smoking Status: Current every day smoker tobacco type: e-cigarettes alcohol intake: never substance use type: marijuana current occupational status: unemployed Travel in the last 8 weeks: None [facility] Anesthesia Checklist Patient Identification Patient Identification: Arm Band and Verbal (Name & ) Structural Data Admitted From: Emergency Dept Planned Operative Procedure/s: Lap. appy Consent for Planned Operative Procedure(s) Verified: Yes Verified Documents: Surgical Consent and History and Physical NPO Status Verified Time NPO: 13:00 Chart Verification Results Verified: HCG Additional verifications Anesthesia Reactions: No Hx Blood Transfusions: No Blood Transfusion Reaction: No Airway Assessment Mallampati Score:: Class I C-Spine Mobility Assessed: Yes TMJ Mobility Assessed: Yes Dentition: Good Dentition Neurological Assessment Level of Consciousness: Awake Hx Seizures: No Numbness or tingling in extremities: No Anesthesia Plan Anesthesia Risk discussed: Yes Anesthesia Plan: Verified ASA Class: II Anesthesia Type: General
--- NOTE | 2024-07-13 19:36 | PC.NURSE ---
Surgery nurse Alma at bedside for transport
--- NOTE | 2024-07-13 19:41 | P.OP_ITS ---
Date of procedure: 07/13/24 Pre-op Diagnosis:: Appendicitis Post-op Diagnosis:: Same Procedure performed:: Laparoscopic appendectomy Surgeon:: Mehul Gomez MD FAMILY INDEPENDENCE CASE MANAGER:: Vianney Parker Anesthesia: GETMargaret Estimated blood loss (mL): 15 Operative findings:: Inflamed/enlarged appendix with mild thickening/induration Straw-colored fluid in the pelvis Operative note:: After informed consent was obtained the patient was taken to the operating room and placed in the supine position. General anesthesia was induced and her abdomen was prepped and draped in a sterile fashion. After infiltration with local anesthetic an infraumbilical incision was made. A Veress needle was placed in position. The abdomen was insufflated. A 12 mm optical trocar was placed in position. Under direct visualization and an additional 5 mm trocar was placed in the suprapubic position and an additional 5 mm trocar was placed in the left lower quadrant. The appendix was carefully elevated. The appendix was inflamed/enlarged. Fairly severe soft tissue stranding noted. A window was made in the mesoappendix and an Endopath 45 stapling device was utilized to transect the appendix at its base. The mesoappendix was taken with harmonic s hears and the appendix was placed in a retrieval bag. The appendix was removed through the infraumbilical trocar site. The right lower quadrant was thoroughly irrigated. No active bleeding or sign of injury was noted. No pockets of purulence were noted. Strahl-colored fluid was noted in the pelvis. This was evacuated. The trocars were carefully removed. Fascia at the infraumbilical trocar site was reapproximated with 0 Ethibond. All wounds were irrigated and skin was closed with 4-0 Monocryl in a subcuticular fashion. Dressings were applied and patient was transferred to recovery in stable condition. Condition: stable Disposition: PACU Specimens:: Appendix Complications:: No immediate
[2024-07-13] MEDS: METRONIDAZ/SOD CHL 500 MG/100 ML PIGGYBACK 100 MG IV (20:00)
[2024-07-13] MEDS: 0.9 % SODIUM CHLORIDE 100 ML IV (20:05)
[2024-07-13] MEDS: CEFTRIAXONE 2 GM (20:05)
[2024-07-13] MEDS: LIDOCAINE 1% 20ML MDV 20 ML (20:22)
--- NOTE | 2024-07-13 20:51 | P.PNANES_ITS ---
[facility] Anesthesia Record Part I Anesthesia Record I Intake, IV Amount: 700 Hydration: Adequate Estimated blood loss (mL): 15 Urine output (mL): 0 Blood Pressure: 119/65 SaO2: 98 Pulse Rate: 121 Airway Patency: Patent Respiratory Rate: 20 Temperature: 97.4 F Patient is:: Awake Stable to PACU at:: 20:50
[2024-07-13] MEDS: MORPHINE 2MG/ML SYRINGE 2 MG IV (21:10)
--- NOTE | 2024-07-14 09:56 | P.PNANES_ITS ---
[facility] Anesthesia Record Part II Anesthesia Record Part II Discharge Time: 21:20 Destination: [facility] (OP Surgery) PACU nurse assessment reviewed?: Yes Patient Condition:: Good Anesthesia Complications:: None Swallowing reflex intact?: Yes Airway Patency: Patent Cyanosis?: No Blood Pressure: 119/75 SaO2: 99 Respiratory Rate: 15 Pulse Rate: 86 Temperature: 98.2 F Mental Status: Alert & Oriented Pain level:: 2 Nausea and/or vomitting:: None Intake, IV Amount: 0 Hydration: Adequate
[2024-07-14 09:57] VITALS: BP 119/75; PULSE 86; RESP 15; TEMP 36.8; O2SAT 99
== END 2024-07-13 21:50 | disposition home or self-care (01) ==
LOC: ER 19:35 → SDC 19:36
PROVIDERS: Emergency Provider Emergency Medicine; PCP Nurse Practitioner Family; Visit Provider Surgery
PROC: 0DTJ4ZZ Resection of Appendix, Percutaneous Endoscopic Approach (ICD-10-PCS; CPT 44970; principal; 2024-07-13 19:00)
DX: K37 Unspecified appendicitis (principal)
CPT/HCPCS: 44970; 74177; 80053; 81001; 84703; 85025; 86140; 96374; J3490; J0330; J0696; J1100; J1885; J2270; J2405; J3010; J7120; Q9963; Q9967